=== PATIENT | female | born 1975 | race Caucasian/White ===

== ENCOUNTER 2021-08-05 12:30 | Observation (INO) ==
[2021-08-05 14:20] LABS: Basophils # 0.1 K/mcL (0.0-0.2); Basophils % 0.6 %; Eosinophils # 0.1 K/mcL (0.0-0.6); Hematocrit 21.1 % (35.3-44.9); Immature Granulocytes % 0.6 % (0-4); Lymphocytes # 4.2 K/mcL (0.6-4.6); Mean Corpuscular HGB Conc 25.6 g/dL (31.6-35.5); Mean Corpuscular Hemoglobin 15.4 pg (28.0-33.3); Mean Corpuscular Volume 60.3 fL (83.0-100.0); Mean Platelet Volume 9.2 fL (9.4-12.4); Monocytes # 0.6 K/mcL (0.0-1.3); Monocytes % 5.7 %; Neutrophils # 5.2 K/mcL (1.6-8.9); Nucleated Red Blood Cells 0.9 /100 WBC (0); Platelet Count 585 K/mcL (140-400); Red Cell Distribution Width 17.5 % (11.5-14.5); Segmented Neutrophils % 51.1 %; White Blood Count 10.2 K/mcL (4.3-11.1)
[2021-08-05 14:28] LABS: Hemoglobin 5.4 g/dL (11.5-15.4)
[2021-08-05 14:46] LABS: Anisocytosis 1+ (Not Present); BUN/Creatinine Ratio 16 (6-26); Blood Urea Nitrogen 11 mg/dL (6-20); Calcium 9.2 mg/dL (8.6-10.3); Carbon Dioxide 22 mEq/L (23-29); Chloride 106 mEq/L (98-107); Glucose 97 mg/dL (70-105); Osmolality,Calculated 279 (280-300); Potassium 3.8 mEq/L (3.5-5.1); Sodium 135 mEq/L (136-145); eGFR For African Americans > 60 (> 60); eGFR For Non-African Americans > 60 (> 60)
[2021-08-05 14:47] LABS: Hypochromasia Present (Not Present); Microcytosis Present (Not Present); Poikilocytosis 1+ (Not Present)
[2021-08-05 15:57] LABS: INR 1.2; Prothrombin Time 13.6 Seconds (9.4-12.1)
[2021-08-05] MEDS ORDERED: Ondansetron 4 MG/2 ML VIAL IVP PRN (16:19)
[2021-08-05] MEDS ORDERED: Naloxone 0.4 MG/ML INJ IVP PRN (16:19)
[2021-08-05] MEDS ORDERED: 0.9 % Sodium Chloride 500 ML ONE (17:02)
[2021-08-05 18:39] LABS: Thyroid Stimulating Hormone 3.553 mcIU/mL (0.340-5.600)
[2021-08-05] MEDS: Pantoprazole 40 MG VIAL IVP SCH (18:47)
[2021-08-06 00:34] LABS: Mean Platelet Volume 8.7 fL (9.4-12.4); Red Cell Distribution Width 24.7 % (11.5-14.5)
[2021-08-06 00:35] LABS: Hematocrit 20.4 % (35.3-44.9); Mean Corpuscular HGB Conc 27.5 g/dL (31.6-35.5); Mean Corpuscular Hemoglobin 18.1 pg (28.0-33.3); Mean Corpuscular Volume 65.8 fL (83.0-100.0); Platelet Count 442 K/mcL (140-400); White Blood Count 10.6 K/mcL (4.3-11.1)
[2021-08-06 00:38] LABS: Hemoglobin 5.6 g/dL (11.5-15.4)
[2021-08-06 00:54] LABS: Alanine Aminotransferase 8 Units/L (7-52); Albumin 3.6 g/dL (3.5-5.7); Albumin/Globulin Ratio 1.4 (1.1-2.2); Alkaline Phosphatase 54 Units/L (34-104); Aspartate Amino Transferase 12 Units/L (13-39); BUN/Creatinine Ratio 14 (6-26); Bilirubin,Total 0.4 mg/dL (0.3-1.0); Blood Urea Nitrogen 10 mg/dL (6-20); Calcium 8.4 mg/dL (8.6-10.3); Carbon Dioxide 20 mEq/L (23-29); Chloride 110 mEq/L (98-107); Chol/HDL Ratio 4.3 (0-4.9); Cholesterol 151 mg/dL (< 200); Globulin 2.5 g/dL (2.4-3.5); Glucose 99 mg/dL (70-105); HDL Cholesterol 35 mg/dL (40-59); LDL Cholesterol,Calculated 100 mg/dL (< 100); Osmolality,Calculated 283 (280-300); Potassium 3.9 mEq/L (3.5-5.1); Sodium 137 mEq/L (136-145); Total Protein 6.1 g/dL (6.4-8.9); Triglycerides 82 mg/dL (< 150); eGFR For African Americans > 60 (> 60); eGFR For Non-African Americans > 60 (> 60)
[2021-08-06] MEDS ORDERED: 0.9 % Sodium Chloride 250 ML ONE (00:55)
[2021-08-06] MEDS: Pantoprazole 40 MG VIAL IVP SCH ×2 (04:09→16:41)
[2021-08-06 06:46] LABS: Hematocrit 23.3 % (35.3-44.9); Hemoglobin 6.8 g/dL (11.5-15.4)
[2021-08-06] MEDS ORDERED: Cyanocobalamin (B-12) 1,000 MCG/ML VIAL SQ ONE (07:48)
[2021-08-06] MEDS ORDERED: 0.9 % Sodium Chloride 250 ML IVC SCH ×2 (08:00)
[2021-08-06] MEDS: Folic Acid 1 MG TABLET PO SCH (08:51)
[2021-08-06] MEDS ORDERED: Lidocaine -MPF 2% 5 ML VIAL ONE (14:19)
[2021-08-06] MEDS ORDERED: *HR* Propofol 200 MG/20 ML VIAL IVP ONE ×2 (14:19→14:46)
[2021-08-06 14:43] LABS: Hematocrit 28.4 % (35.3-44.9); Hemoglobin 8.2 g/dL (11.5-15.4)
[2021-08-07 03:06] LABS: Hemoglobin 8.1 g/dL (11.5-15.4); Mean Corpuscular HGB Conc 28.9 g/dL (31.6-35.5); Mean Corpuscular Hemoglobin 20.2 pg (28.0-33.3); Mean Corpuscular Volume 69.8 fL (83.0-100.0); Platelet Count 435 K/mcL (140-400); Red Blood Count 4.01 M/mcL (3.82-4.97); Red Cell Distribution Width 27.1 % (11.5-14.5); White Blood Count 11.4 K/mcL (4.3-11.1)
[2021-08-07] MEDS: Pantoprazole 40 MG VIAL IVP SCH (04:32)
[2021-08-07 07:43] VITALS: BP 112/74; PULSE 90; TEMP 97.4; O2SAT 95
[2021-08-07] MEDS: Folic Acid 1 MG TABLET PO SCH (08:04)
[2021-08-07] MEDS ORDERED: Cyanocobalamin (B-12) 1,000 MCG TABLET PO SCH (09:00)
[2021-08-08 10:42] LABS: Transferrin 436 mg/dL (200-400)
== END 2021-08-07 10:51 | disposition home or self-care (01) ==
LOC: 3ANU 12:30 → EMEROOARM 12:30 → SUATTDRO 16:55 → 3ANU 19:03
PROVIDERS: ADMIT Pharmacist; ATTEND Student in an Organized Health Care Education/Training Program
PROC: ENDOEBX (2021-08-06 14:30)